=== PATIENT | male | born 1990 | race Caucasian/White ===

== ENCOUNTER 2018-10-01 18:47 | Inpatient (IN) | payer MEDICAID ==
[2018-10-02 00:12] LABS: ADD MAN DIFF? NO
[2018-10-02 00:14] LABS: WHITE BLOOD COUNT 15.2 10^3/ul (4.8-10.8)
[2018-10-02 00:14] LABS: BASOPHIL # 0.1 10^3/ul (0.0-0.1); BASOPHILS % 0.8 % (0.0-2.0); EOSINOPHILS # 0.6 10^3/ul (0.0-0.5); EOSINOPHILS % 3.9 % (0.0-7.0); HEMATOCRIT 37.3 % (42.0-52.0); HEMOGLOBIN 12.3 g/dl (14.0-18.0); LYMPHOCYTES # 3.9 10^3/ul (0.8-2.9); LYMPHOCYTES % 25.8 % (15.0-51.0); MEAN CORPUSCULAR HEMOGLOBIN 31.1 pg (29.0-33.0); MEAN CORPUSCULAR VOLUME 94.4 fl (82.0-101.0); MEAN PLATELET VOLUME 9.3 fl (7.4-10.4); MONOCYTE # 1.2 10^3/ul (0.3-0.9); MONOCYTES % 8.1 % (0.0-11.0); NEUTROPHIL # 9.3 10^3/ul (1.6-7.5); NEUTROPHILS % 60.9 % (39.0-77.0); PLATELET COUNT 288 10^3/UL (140-415); RED BLOOD COUNT 3.95 10^6/ul (4.70-6.10); RED CELL DISTRIBUTION WIDTH 13.9 % (11.5-14.5)
[2018-10-02 00:33] LABS: ANION GAP 8 (5-13); BLOOD UREA NITROGEN 11 mg/dl (7-20); CALCIUM 8.4 mg/dl (8.4-10.2); CARBON DIOXIDE 25 mmol/L (21-31); CHLORIDE 108 mmol/L (97-110); CREATININE 0.96 mg/dl (0.61-1.24); Estimated GFR > 60 mL/min (>60); GLUCOSE 112 mg/dl (70-220); POTASSIUM 4.5 mmol/L (3.5-5.1); SODIUM 141 mmol/L (135-144)
[2018-10-02] MEDS: morphine 4 MG/ML VIAL IV ×2 (01:05→02:48)
[2018-10-02] MEDS: SOD CHLORIDE 0.9% 500 ML IV (01:05)
[2018-10-02] MEDS: ONDANSETRON 4 MG INJ IV (01:05)
[2018-10-02] MEDS ORDERED: ACETAMINOPHEN 325 MG TAB PO (03:30)
[2018-10-02] MEDS ORDERED: ONDANSETRON 4 MG INJ IV ×2 (03:30→04:30)
[2018-10-02] MEDS: PIPER-TAZO 3.375 GM IV (PMX) 100 ML IVPB ×4 (03:48→17:00)
[2018-10-02] MEDS ORDERED: NITROGLYCERIN (SL) 0.4 MG TAB SL (04:30)
[2018-10-02] MEDS ORDERED: VANCOMYCIN IV PER PHARMACY XX (04:30)
[2018-10-02] MEDS ORDERED: hydrALAzine 20 MG INJ IV (04:30)
[2018-10-02] MEDS ORDERED: ALBUTEROL/IPRATROPIUM (NEB) 3 ML AMP HHN (04:30)
[2018-10-02] MEDS ORDERED: MAGNESIUM HYDROXIDE 30ML CUP PO (04:30)
[2018-10-02] MEDS ORDERED: DOCUSATE SODIUM 100 MG CAP PO (04:30)
[2018-10-02] MEDS ORDERED: LEVALBUTEROL (HFA) 15 GM INHALER INH (04:30)
[2018-10-02] MEDS ORDERED: NACL 0.9% 3 ML SYG IV (04:30)
[2018-10-02] MEDS: morphine 2 MG INJ IV ×3 (04:57→13:23)
[2018-10-02] MEDS: SOD CHLORIDE 0.45% 1,000 ML IV ×2 (05:21→17:49)
[2018-10-02] MEDS ORDERED: CEPASTAT LOZENGE MT (05:30)
[2018-10-02] MEDS: HYDROCODONE/APAP (5/325) TAB PO ×4 (05:51→21:26)
[2018-10-02] MEDS: VANCOMYCIN 1 GM (PMX) 250 ML IVPB (06:19)
[2018-10-02 07:10] LABS: FREE T4 (FREE THYROXINE) 1.28 ng/dl (0.79-2.35)
[2018-10-02] MEDS ORDERED: VITAMIN E 1,000 UNIT CAP PO (09:00)
[2018-10-02] MEDS: CHOLECALCIFEROL 1,000 UNIT TAB PO (09:09)
[2018-10-02] MEDS: VITAMIN E 200 UNITS CAP PO (09:12)
[2018-10-02] MEDS: LORAZEPAM 2 MG INJ IV ×3 (10:14→22:56)
[2018-10-02] MEDS: GUAIFENESIN 20 MG/ML 5ML CUP PO (14:17)
[2018-10-02] MEDS: GUAIFENESIN/DM (SR) TAB PO ×2 (16:36→21:25)
[2018-10-02] MEDS: LORATADINE 10 MG TAB PO (16:36)
[2018-10-02] MEDS: PROMETHAZINE/DM (CUP) PO ×2 (18:31→22:56)
[2018-10-02] MEDS: VANCOMYCIN 1 GM 250 ML IVPB (18:31)
[2018-10-02] MEDS ORDERED: VANCOMYCIN 1 GM 250 ML IVPB (19:00)
[2018-10-02] MEDS: ACETAMINOPHEN 325 MG TAB PO (22:56)
[2018-10-02] MEDS: FLUTICASONE 0.05% 16 GM NAS SPRAY NASAL (23:01)
[2018-10-03] MEDS: PIPER-TAZO 3.375 GM IV (PMX) 100 ML IVPB ×3 (00:30→12:00)
[2018-10-03] MEDS: HYDROCODONE/APAP (5/325) TAB PO ×4 (04:11→20:48)
[2018-10-03] MEDS: PROMETHAZINE/DM (CUP) PO (04:11)
[2018-10-03] MEDS: LORAZEPAM 2 MG INJ IV (05:17)
[2018-10-03] MEDS: VANCOMYCIN 1 GM 250 ML IVPB ×2 (05:17→22:03)
[2018-10-03] MEDS: SOD CHLORIDE 0.45% 1,000 ML IV (07:09)
[2018-10-03] MEDS: GUAIFENESIN/DM (SR) TAB PO ×2 (08:07→20:47)
[2018-10-03] MEDS: VITAMIN E 200 UNITS CAP PO (08:07)
[2018-10-03] MEDS: CHOLECALCIFEROL 1,000 UNIT TAB PO (08:07)
[2018-10-03] MEDS: LORATADINE 10 MG TAB PO (08:07)
[2018-10-03] MEDS: DIPHENHYDRAMINE 25 MG CAP PO ×2 (08:10→14:33)
[2018-10-03] MEDS: FLUTICASONE 0.05% 16 GM NAS SPRAY NASAL ×2 (09:21→20:48)
[2018-10-03 09:41] LABS: ADD MAN DIFF? NO
[2018-10-03 09:46] LABS: BASOPHIL # 0.1 10^3/ul (0.0-0.1); BASOPHILS % 0.7 % (0.0-2.0); EOSINOPHILS # 0.8 10^3/ul (0.0-0.5); EOSINOPHILS % 8.4 % (0.0-7.0); HEMATOCRIT 38.8 % (42.0-52.0); HEMOGLOBIN 12.5 g/dl (14.0-18.0); LYMPHOCYTES # 1.1 10^3/ul (0.8-2.9); LYMPHOCYTES % 10.8 % (15.0-51.0); MEAN CORPUSCULAR HEMOGLOBIN 30.5 pg (29.0-33.0); MEAN CORPUSCULAR HGB CONC 32.2 g/dl (32.0-37.0); MEAN CORPUSCULAR VOLUME 94.6 fl (82.0-101.0); MEAN PLATELET VOLUME 9.3 fl (7.4-10.4); MONOCYTE # 0.6 10^3/ul (0.3-0.9); MONOCYTES % 5.7 % (0.0-11.0); NEUTROPHIL # 7.2 10^3/ul (1.6-7.5); PLATELET COUNT 272 10^3/UL (140-415)
[2018-10-03 09:46] LABS: WHITE BLOOD COUNT 9.7 10^3/ul (4.8-10.8)
[2018-10-03 10:04] LABS: ANION GAP 9 (5-13); BLOOD UREA NITROGEN 10 mg/dl (7-20); CALCIUM 8.6 mg/dl (8.4-10.2); CARBON DIOXIDE 29 mmol/L (21-31); CHLORIDE 103 mmol/L (97-110); CREATININE 1.03 mg/dl (0.61-1.24); Estimated GFR > 60 mL/min (>60); GLUCOSE 91 mg/dl (70-220); MAGNESIUM 2.2 mg/dl (1.7-2.5); POTASSIUM 4.2 mmol/L (3.5-5.1); SODIUM 141 mmol/L (135-144)
[2018-10-03 10:05] LABS: CHOLESTEROL 93 mg/dl (100-200)
[2018-10-03 10:05] LABS: CHOL/HDL RATIO 2.3 RATIO; HDL CHOLESTEROL 40 mg/dl (30-63); LDL CHOLESTEROL,CALCULATED 43 mg/dl; TRIGLYCERIDES 51 mg/dl (0-149)
[2018-10-03 10:51] LABS: HEMOGLOBIN A1C 4.8 % (0-5.9)
[2018-10-03] MEDS: NACL 3% FOR INHALATION 15 ML NEBU NEB (12:30)
[2018-10-03] MEDS: ACETAMINOPHEN 325 MG TAB PO (15:04)
[2018-10-03] MEDS: ALPRAZOLAM 0.5 MG TAB PO (20:48)
[2018-10-03] MEDS: ALBUTEROL/IPRATROPIUM (NEB) 3 ML AMP HHN (22:00)
[2018-10-03] MEDS ORDERED: VANCOMYCIN IV PER PHARMACY XX (22:00)
[2018-10-03] MEDS ORDERED: HYDROCODONE/APAP (5/325) TAB PO (22:00)
[2018-10-04] MEDS: PIPER-TAZO 3.375 GM IV (PMX) 100 ML IVPB ×3 (00:49→12:16)
[2018-10-04] MEDS: HYDROCODONE/APAP (5/325) TAB PO ×4 (00:52→14:50)
[2018-10-04] MEDS: ALPRAZOLAM 0.5 MG TAB PO ×3 (00:52→13:53)
[2018-10-04] MEDS: DIPHENHYDRAMINE 25 MG CAP PO ×3 (01:47→14:50)
[2018-10-04] MEDS: ALBUTEROL/IPRATROPIUM (NEB) 3 ML AMP HHN ×2 (02:00→08:39)
[2018-10-04 07:19] LABS: ADD MAN DIFF? NO
[2018-10-04 07:30] LABS: BASOPHIL # 0.1 10^3/ul (0.0-0.1); BASOPHILS % 0.9 % (0.0-2.0); EOSINOPHILS # 1.5 10^3/ul (0.0-0.5); EOSINOPHILS % 17.1 % (0.0-7.0); HEMATOCRIT 36.7 % (42.0-52.0); LYMPHOCYTES # 1.7 10^3/ul (0.8-2.9); LYMPHOCYTES % 18.9 % (15.0-51.0); MEAN CORPUSCULAR HEMOGLOBIN 30.9 pg (29.0-33.0); MEAN CORPUSCULAR HGB CONC 32.7 g/dl (32.0-37.0); MEAN CORPUSCULAR VOLUME 94.6 fl (82.0-101.0); MEAN PLATELET VOLUME 9.2 fl (7.4-10.4); MONOCYTES % 10.7 % (0.0-11.0); NEUTROPHIL # 4.6 10^3/ul (1.6-7.5); NEUTROPHILS % 52.1 % (39.0-77.0); PLATELET COUNT 275 10^3/UL (140-415); RED BLOOD COUNT 3.88 10^6/ul (4.70-6.10); RED CELL DISTRIBUTION WIDTH 13.7 % (11.5-14.5)
[2018-10-04 07:30] LABS: WHITE BLOOD COUNT 8.9 10^3/ul (4.8-10.8)
[2018-10-04] MEDS: GUAIFENESIN/DM (SR) TAB PO (08:40)
[2018-10-04] MEDS: VITAMIN E 200 UNITS CAP PO (08:40)
[2018-10-04] MEDS: CHOLECALCIFEROL 1,000 UNIT TAB PO (08:41)
[2018-10-04] MEDS: LORATADINE 10 MG TAB PO (08:41)
[2018-10-04] MEDS: FLUTICASONE 0.05% 16 GM NAS SPRAY NASAL (09:00)
[2018-10-04] MEDS: VANCOMYCIN 1 GM 250 ML IVPB (09:25)
[2018-10-04] MEDS: morphine 2 MG INJ IV (09:25)
[2018-10-04] MEDS: PROMETHAZINE/DM (CUP) PO (10:25)
== END 2018-10-04 15:25 | disposition home or self-care (01) | DRG 202 ==
LOC: E/R 18:47 → 5EC 10-02 03:14
DX: J20.9 Acute bronchitis, unspecified (principal); E84.9 Cystic fibrosis, unspecified; R04.2 Hemoptysis; Z76.5 Malingerer [conscious simulation]
CPT/HCPCS: 36415; 71045; 80048; 80061; 83036; 83605; 83735; 84100; 84439; 84443; 85025; 87040-91; 87070; 87400; 89220; 94664; 96374; 96375; 96376; 99285-25

== ENCOUNTER 2018-11-10 15:01 | Emergency (ER) | payer MEDICAID ==
[2018-11-10] MEDS: SOD CHLORIDE 0.9% 1,000 ML IV (16:09)
[2018-11-10] MEDS: morphine 4 MG/ML VIAL IV (16:10)
[2018-11-10] MEDS: ONDANSETRON 4 MG INJ IV (16:10)
[2018-11-10 16:22] LABS: ADD MAN DIFF? NO
[2018-11-10 16:25] LABS: BASOPHIL # 0.2 10^3/ul (0.0-0.1); BASOPHILS % 0.8 % (0.0-2.0); EOSINOPHILS # 0.5 10^3/ul (0.0-0.5); HEMATOCRIT 36.4 % (42.0-52.0); HEMOGLOBIN 12.5 g/dl (14.0-18.0); LYMPHOCYTES # 2.9 10^3/ul (0.8-2.9); LYMPHOCYTES % 16.6 % (15.0-51.0); MEAN CORPUSCULAR HEMOGLOBIN 31.2 pg (29.0-33.0); MEAN CORPUSCULAR HGB CONC 34.3 g/dl (32.0-37.0); MEAN CORPUSCULAR VOLUME 90.8 fl (82.0-101.0); MEAN PLATELET VOLUME 9.1 fl (7.4-10.4); MONOCYTE # 1.2 10^3/ul (0.3-0.9); NEUTROPHIL # 12.8 10^3/ul (1.6-7.5); PLATELET COUNT 385 10^3/UL (140-415); RED BLOOD COUNT 4.01 10^6/ul (4.70-6.10); RED CELL DISTRIBUTION WIDTH 11.8 % (11.5-14.5)
[2018-11-10 16:25] LABS: WHITE BLOOD COUNT 17.7 10^3/ul (4.8-10.8)
[2018-11-10 17:24] LABS: ALANINE AMINOTRANSFERASE 14 IU/L (13-69); ALBUMIN 4.2 g/dl (3.3-4.9); ALBUMIN/GLOBULIN RATIO 0.89; ALKALINE PHOSPHATASE 164 IU/L (42-121); ANION GAP 13 (5-13); ASPARTATE AMINO TRANSFERASE 28 IU/L (15-46); BILIRUBIN,INDIRECT 0.8 mg/dl (0-1.1); BILIRUBIN,TOTAL 0.8 mg/dl (0.2-1.3); BLOOD UREA NITROGEN 8 mg/dl (7-20); CALCIUM 9.5 mg/dl (8.4-10.2); CARBON DIOXIDE 22 mmol/L (21-31); CHLORIDE 103 mmol/L (97-110); CREATININE 0.86 mg/dl (0.61-1.24); Estimated GFR > 60 mL/min (>60); GLUCOSE 112 mg/dl (70-220); POTASSIUM 3.9 mmol/L (3.5-5.1); SODIUM 138 mmol/L (135-144); TOTAL PROTEIN 8.9 g/dl (6.1-8.1)
[2018-11-10 17:26] LABS: LIPASE < 10 U/L (23-300)
[2018-11-10 17:38] LABS: ADD UMIC YES; UR ASCORBIC ACID NEGATIVE (NEGATIVE); UR BILIRUBIN (Dip) NEGATIVE (NEGATIVE); UR BLOOD (Dip) 1+ mg/dL (NEGATIVE); UR CLARITY CLEAR (CLEAR); UR COLOR STRAW (YELLOW); UR GLUCOSE (Dip) NEGATIVE (NEGATIVE); UR KETONES (Dip) NEGATIVE (NEGATIVE); UR LEUKOCYTE ESTERASE (Dip) NEGATIVE Leu/ul (NEGATIVE); UR NITRITE (Dip) NEGATIVE (NEGATIVE); UR RBC 0 /HPF (0-5); UR SPECIFIC GRAVITY (Dip) 1.002 (1.003-1.030); UR TOTAL PROTEIN (Dip) NEGATIVE (NEGATIVE); UR UROBILINOGEN (Dip) NEGATIVE (NEGATIVE); UR WBC 0 /HPF (0-5)
== END 2018-11-10 18:28 | disposition home or self-care (01) ==
LOC: E/R 15:01
DX: B34.9 Viral infection, unspecified (principal)
CPT/HCPCS: 36415; 71045; 80053; 81001; 83690; 85025; 96361; 96374; 96375; 99284-25

== ENCOUNTER 2018-11-17 12:08 | Inpatient (IN) | payer MEDICAID, OTHER ==
[2018-11-17 13:43] LABS: ADD MAN DIFF? NO
[2018-11-17] MEDS: morphine 4 MG/ML VIAL IV (13:44)
[2018-11-17] MEDS: ONDANSETRON 4 MG INJ IV ×3 (13:44→20:24)
[2018-11-17] MEDS: LACTATED RINGER'S 1,000 ML IV (13:47)
[2018-11-17 13:50] LABS: BASOPHIL # 0.2 10^3/ul (0.0-0.1); BASOPHILS % 0.7 % (0.0-2.0); EOSINOPHILS # 0.1 10^3/ul (0.0-0.5); EOSINOPHILS % 0.2 % (0.0-7.0); HEMATOCRIT 39.6 % (42.0-52.0); HEMOGLOBIN 13.6 g/dl (14.0-18.0); LYMPHOCYTES # 1.2 10^3/ul (0.8-2.9); LYMPHOCYTES % 5.5 % (15.0-51.0); MEAN CORPUSCULAR HEMOGLOBIN 31.1 pg (29.0-33.0); MEAN CORPUSCULAR HGB CONC 34.3 g/dl (32.0-37.0); MEAN CORPUSCULAR VOLUME 90.4 fl (82.0-101.0); MEAN PLATELET VOLUME 8.7 fl (7.4-10.4); MONOCYTE # 1.1 10^3/ul (0.3-0.9); NEUTROPHIL # 19.4 10^3/ul (1.6-7.5); PLATELET COUNT 386 10^3/UL (140-415); RED BLOOD COUNT 4.38 10^6/ul (4.70-6.10); RED CELL DISTRIBUTION WIDTH 11.8 % (11.5-14.5)
[2018-11-17] MEDS: HYDROmorphONE 0.5 MG/0.5 ML SYG IV ×2 (14:03→16:43)
[2018-11-17 14:13] LABS: ALANINE AMINOTRANSFERASE 33 IU/L (13-69); ALBUMIN 4.7 g/dl (3.3-4.9); ALBUMIN/GLOBULIN RATIO 0.83; ALKALINE PHOSPHATASE 210 IU/L (42-121); ANION GAP 14 (5-13); ASPARTATE AMINO TRANSFERASE 35 IU/L (15-46); BILIRUBIN,INDIRECT 1.1 mg/dl (0-1.1); BILIRUBIN,TOTAL 1.1 mg/dl (0.2-1.3); BLOOD UREA NITROGEN 6 mg/dl (7-20); CALCIUM 10.3 mg/dl (8.4-10.2); CARBON DIOXIDE 23 mmol/L (21-31); CHLORIDE 104 mmol/L (97-110); CREATININE 0.93 mg/dl (0.61-1.24); Estimated GFR > 60 mL/min (>60); GLUCOSE 160 mg/dl (70-220); POTASSIUM 3.9 mmol/L (3.5-5.1); SODIUM 141 mmol/L (135-144); TOTAL PROTEIN 10.3 g/dl (6.1-8.1)
[2018-11-17 14:14] LABS: LIPASE < 10 U/L (23-300)
[2018-11-17 14:24] LABS: TROPONIN-I < 0.012 ng/ml (0.000-0.120)
[2018-11-17] MEDS: SOD CHLORIDE 0.9% 100 ML (14:27)
[2018-11-17] MEDS: IODIXANOL LOCM 100 ML BTL (14:27)
[2018-11-17 14:32] LABS: INR 1.22; PROTIME 15.5 Sec (11.9-14.9); PT RATIO 1.2
[2018-11-17 14:33] LABS: PARTIAL THROMBOPLASTIN TIME 26.7 Sec (23.0-35.0)
[2018-11-17] MEDS: CEFEPIME 2GM/50 ML (PMX) 50 ML IVPB ×2 (15:09→21:15)
[2018-11-17] MEDS: SODIUM CHLORIDE 0.9% 1L BAG IV* (15:09)
[2018-11-17] MEDS: SOD CHLORIDE 0.9% 1,000 ML IV ×2 (15:36→23:25)
[2018-11-17] MEDS: LORAZEPAM 2 MG INJ IV (15:46)
[2018-11-17] MEDS: VANCOMYCIN 1 GM (PMX) 250 ML IVPB (15:49)
[2018-11-17] MEDS ORDERED: ONDANSETRON 4 MG INJ IV (16:00)
[2018-11-17] MEDS ORDERED: ACETAMINOPHEN 325 MG TAB PO ×2 (16:00→19:00)
[2018-11-17 17:33] LABS: LACTIC ACID 1.1 mmol/L (0.5-2.0)
[2018-11-17] MEDS ORDERED: DOCUSATE SODIUM 100 MG CAP PO (19:00)
[2018-11-17] MEDS ORDERED: NACL 0.9% 3 ML SYG IV (19:00)
[2018-11-17] MEDS ORDERED: ALBUTEROL 18 GM INHALER INH (19:00)
[2018-11-17] MEDS: morphine 2 MG INJ IV ×2 (19:07→23:25)
[2018-11-17] MEDS: AZITHROMYCIN 500MG/NS (PMX) 250 ML IVPB (20:24)
[2018-11-17] MEDS ORDERED: [UNRECOGNIZED DRUG - OTHER] PO (21:00)
[2018-11-17] MEDS ORDERED: TOBRAMYCIN INHALATION (21:00)
[2018-11-17] MEDS ORDERED: IVACAFTOR 150 MG PO (21:00)
[2018-11-17 21:01] LABS: ADD UMIC YES; UR ASCORBIC ACID NEGATIVE (NEGATIVE); UR BILIRUBIN (Dip) NEGATIVE (NEGATIVE); UR BLOOD (Dip) 1+ mg/dL (NEGATIVE); UR CLARITY CLEAR (CLEAR); UR COLOR YELLOW (YELLOW); UR GLUCOSE (Dip) NEGATIVE (NEGATIVE); UR KETONES (Dip) TRACE mg/dL (NEGATIVE); UR LEUKOCYTE ESTERASE (Dip) NEGATIVE Leu/ul (NEGATIVE); UR MUCUS FEW /HPF (NONE SEEN); UR NITRITE (Dip) NEGATIVE (NEGATIVE); UR RBC 5 /HPF (0-5); UR SQUAMOUS EPITHELIAL CELL FEW /HPF (FEW); UR TOTAL PROTEIN (Dip) NEGATIVE (NEGATIVE); UR UROBILINOGEN (Dip) NEGATIVE (NEGATIVE); UR WBC 1 /HPF (0-5)
[2018-11-17] MEDS: URSODIOL 300 MG CAP PO (21:14)
[2018-11-17] MEDS: MONTELUKAST 10 MG TAB PO (21:14)
[2018-11-17] MEDS: HYDROCODONE/APAP (5/325) TAB PO (21:16)
[2018-11-17] MEDS: [UNRECOGNIZED DRUG - REMARK] XX (21:30)
[2018-11-17] MEDS: [UNRECOGNIZED DRUG - REMARK] XX (21:30)
[2018-11-17] MEDS: [UNRECOGNIZED DRUG - REMARK] XX (21:30)
[2018-11-17] MEDS: CYPROHEPTADINE 4 MG TAB PO (23:30)
[2018-11-18] MEDS: ZOLPIDEM 5 MG TAB PO ×2 (01:03→23:04)
[2018-11-18] MEDS: [UNRECOGNIZED DRUG - REMARK] XX ×3 (05:30→21:30)
[2018-11-18] MEDS: [UNRECOGNIZED DRUG - REMARK] XX ×3 (05:30→21:30)
[2018-11-18] MEDS: [UNRECOGNIZED DRUG - REMARK] XX ×3 (05:30→23:52)
[2018-11-18] MEDS: morphine 2 MG INJ IV (05:52)
[2018-11-18 06:06] LABS: ADD MAN DIFF? NO
[2018-11-18 06:09] LABS: WHITE BLOOD COUNT 12.4 10^3/ul (4.8-10.8)
[2018-11-18 06:10] LABS: BASOPHIL # 0.1 10^3/ul (0.0-0.1); BASOPHILS % 0.4 % (0.0-2.0); EOSINOPHILS # 0.3 10^3/ul (0.0-0.5); EOSINOPHILS % 2.7 % (0.0-7.0); HEMATOCRIT 32.7 % (42.0-52.0); LYMPHOCYTES # 0.8 10^3/ul (0.8-2.9); LYMPHOCYTES % 6.3 % (15.0-51.0); MEAN CORPUSCULAR HEMOGLOBIN 31.1 pg (29.0-33.0); MEAN CORPUSCULAR HGB CONC 33.6 g/dl (32.0-37.0); MEAN CORPUSCULAR VOLUME 92.4 fl (82.0-101.0); MEAN PLATELET VOLUME 8.9 fl (7.4-10.4); MONOCYTE # 0.5 10^3/ul (0.3-0.9); MONOCYTES % 4.4 % (0.0-11.0); NEUTROPHIL # 10.7 10^3/ul (1.6-7.5); NEUTROPHILS % 85.9 % (39.0-77.0); PLATELET COUNT 289 10^3/UL (140-415); RED BLOOD COUNT 3.54 10^6/ul (4.70-6.10); RED CELL DISTRIBUTION WIDTH 11.9 % (11.5-14.5)
[2018-11-18 06:20] LABS: HEMOGLOBIN A1C 4.7 % (0-5.9)
[2018-11-18 06:41] LABS: ANION GAP 9 (5-13); BLOOD UREA NITROGEN 4 mg/dl (7-20); CALCIUM 8.8 mg/dl (8.4-10.2); CARBON DIOXIDE 26 mmol/L (21-31); CHLORIDE 108 mmol/L (97-110); Estimated GFR > 60 mL/min (>60); GLUCOSE 95 mg/dl (70-220); MAGNESIUM 1.4 mg/dl (1.7-2.5); PHOSPHORUS 2.9 mg/dl (2.5-4.9); POTASSIUM 3.6 mmol/L (3.5-5.1); SODIUM 143 mmol/L (135-144)
[2018-11-18] MEDS: POLYETHYLENE GLYCOL 17 GM PACKET PO (09:00)
[2018-11-18] MEDS: CEFEPIME 2GM/50 ML (PMX) 50 ML IVPB ×2 (09:02→20:31)
[2018-11-18] MEDS: HYDROCODONE/APAP (5/325) TAB PO ×3 (09:02→18:53)
[2018-11-18] MEDS: URSODIOL 300 MG CAP PO ×3 (09:04→20:29)
[2018-11-18] MEDS: CHOLECALCIFEROL 1,000 UNIT TAB PO (09:04)
[2018-11-18] MEDS: VITAMIN E 400 UNITS CAP PO (09:04)
[2018-11-18] MEDS: MEGESTROL (40 MG/ML) 10ML CUP PO (09:04)
[2018-11-18] MEDS: PANTOPRAZOLE (EC) 40 MG TAB PO (09:04)
[2018-11-18] MEDS: MULTIVITAMINS/MINERALS TAB PO (09:04)
[2018-11-18] MEDS: CYPROHEPTADINE 4 MG TAB PO ×2 (09:05→20:29)
[2018-11-18] MEDS: FLUTICASONE/VILANTEROL 200-25 INH DEVICE INH (09:05)
[2018-11-18] MEDS: SOD CHLORIDE 0.9% 1,000 ML IV ×2 (11:30→15:53)
[2018-11-18] MEDS: ALBUTEROL HFA 8 GM INHALER INH (11:45)
[2018-11-18] MEDS: DORNASE (NEB) 2.5 MG/2.5 ML AMP NEB (13:13)
[2018-11-18] MEDS: PHYTONADIONE (1 MG/ML PO SYG) PO (13:53)
[2018-11-18] MEDS: HYOSCYAMINE 0.375 MG PO (14:30)
[2018-11-18] MEDS: KETOROLAC 15 MG INJ IV ×2 (15:48→21:55)
[2018-11-18] MEDS: HYOSCYAMINE 0.125 MG SUBL TAB PO (15:48)
[2018-11-18] MEDS: MAGNESIUM SULFATE 1 GM/D5W 100 ML IVPB (15:52)
[2018-11-18] MEDS: AZITHROMYCIN 500MG/NS (PMX) 250 ML IVPB (18:53)
[2018-11-18] MEDS ORDERED: DIPHENHYDRAMINE 50 MG CAP PO (20:00)
[2018-11-18] MEDS: MONTELUKAST 10 MG TAB PO (20:28)
[2018-11-19] MEDS: [UNRECOGNIZED DRUG - REMARK] XX (01:00)
[2018-11-19] MEDS: KETOROLAC 15 MG INJ IV ×3 (03:59→18:52)
[2018-11-19] MEDS: [UNRECOGNIZED DRUG - REMARK] XX ×3 (05:30→21:27)
[2018-11-19] MEDS: [UNRECOGNIZED DRUG - REMARK] XX ×3 (05:30→21:27)
[2018-11-19] MEDS: [UNRECOGNIZED DRUG - REMARK] XX ×3 (06:57→21:27)
[2018-11-19] MEDS: POLYETHYLENE GLYCOL 17 GM PACKET PO (09:00)
[2018-11-19] MEDS: URSODIOL 300 MG CAP PO ×3 (09:22→21:22)
[2018-11-19] MEDS: MEGESTROL (40 MG/ML) 10ML CUP PO (09:22)
[2018-11-19] MEDS: CHOLECALCIFEROL 1,000 UNIT TAB PO (09:22)
[2018-11-19] MEDS: PANTOPRAZOLE (EC) 40 MG TAB PO (09:22)
[2018-11-19] MEDS: VITAMIN E 400 UNITS CAP PO (09:23)
[2018-11-19] MEDS: CREON (24K-76K-120K) 1 CAP PO ×3 (09:23→18:02)
[2018-11-19] MEDS: CYPROHEPTADINE 4 MG TAB PO ×2 (09:23→21:17)
[2018-11-19] MEDS: MULTIVITAMINS/MINERALS TAB PO (09:23)
[2018-11-19] MEDS: FLUTICASONE/VILANTEROL 200-25 INH DEVICE INH (09:24)
[2018-11-19] MEDS: HYDROCODONE/APAP (5/325) TAB PO ×3 (09:29→21:16)
[2018-11-19] MEDS: CEFEPIME 2GM/50 ML (PMX) 50 ML IVPB ×2 (09:29→21:25)
[2018-11-19] MEDS: PHYTONADIONE (1 MG/ML PO SYG) PO (09:38)
[2018-11-19] MEDS: SOD CHLORIDE 0.9% 1,000 ML IV ×2 (12:13→22:21)
[2018-11-19] MEDS: HYOSCYAMINE 0.375 MG PO ×2 (12:40→21:00)
[2018-11-19] MEDS: DORNASE (NEB) 2.5 MG/2.5 ML AMP NEB (13:08)
[2018-11-19 14:53] LABS: ADD MAN DIFF? NO
[2018-11-19 14:54] LABS: WHITE BLOOD COUNT 13.2 10^3/ul (4.8-10.8)
[2018-11-19 14:54] LABS: BASOPHIL # 0.1 10^3/ul (0.0-0.1); BASOPHILS % 0.5 % (0.0-2.0); EOSINOPHILS # 0.7 10^3/ul (0.0-0.5); EOSINOPHILS % 4.9 % (0.0-7.0); HEMATOCRIT 35.8 % (42.0-52.0); LYMPHOCYTES # 1.5 10^3/ul (0.8-2.9); LYMPHOCYTES % 11.2 % (15.0-51.0); MEAN CORPUSCULAR HEMOGLOBIN 31.4 pg (29.0-33.0); MEAN CORPUSCULAR HGB CONC 33.5 g/dl (32.0-37.0); MEAN CORPUSCULAR VOLUME 93.7 fl (82.0-101.0); MEAN PLATELET VOLUME 8.9 fl (7.4-10.4); MONOCYTE # 0.7 10^3/ul (0.3-0.9); MONOCYTES % 5.6 % (0.0-11.0); NEUTROPHIL # 10.2 10^3/ul (1.6-7.5); NEUTROPHILS % 77.2 % (39.0-77.0); PLATELET COUNT 315 10^3/UL (140-415); RED BLOOD COUNT 3.82 10^6/ul (4.70-6.10); RED CELL DISTRIBUTION WIDTH 11.9 % (11.5-14.5)
[2018-11-19 15:13] LABS: ANION GAP 10 (5-13); BLOOD UREA NITROGEN 8 mg/dl (7-20); CALCIUM 8.8 mg/dl (8.4-10.2); CARBON DIOXIDE 24 mmol/L (21-31); CHLORIDE 108 mmol/L (97-110); CREATININE 0.87 mg/dl (0.61-1.24); Estimated GFR > 60 mL/min (>60); GLUCOSE 155 mg/dl (70-220); POTASSIUM 3.9 mmol/L (3.5-5.1); SODIUM 142 mmol/L (135-144)
[2018-11-19] MEDS: AZITHROMYCIN 500MG/NS (PMX) 250 ML IVPB (18:02)
[2018-11-19] MEDS: MONTELUKAST 10 MG TAB PO (21:22)
[2018-11-19] MEDS: ZOLPIDEM 5 MG TAB PO (21:52)
[2018-11-20] MEDS: KETOROLAC 15 MG INJ IV ×4 (00:48→18:59)
[2018-11-20] MEDS: [UNRECOGNIZED DRUG - REMARK] XX ×3 (05:30→21:30)
[2018-11-20] MEDS: [UNRECOGNIZED DRUG - REMARK] XX ×3 (05:30→21:30)
[2018-11-20] MEDS: [UNRECOGNIZED DRUG - REMARK] XX ×3 (05:30→21:30)
[2018-11-20] MEDS: MEGESTROL (40 MG/ML) 10ML CUP PO (08:46)
[2018-11-20] MEDS: POLYETHYLENE GLYCOL 17 GM PACKET PO (08:46)
[2018-11-20] MEDS: PHYTONADIONE (1 MG/ML PO SYG) PO (08:46)
[2018-11-20] MEDS: CEFEPIME 2GM/50 ML (PMX) 50 ML IVPB ×2 (08:46→22:27)
[2018-11-20] MEDS: CYPROHEPTADINE 4 MG TAB PO (08:50)
[2018-11-20] MEDS: CHOLECALCIFEROL 1,000 UNIT TAB PO (08:50)
[2018-11-20] MEDS: CREON (24K-76K-120K) 1 CAP PO ×2 (08:50→12:55)
[2018-11-20] MEDS: HYDROCODONE/APAP (5/325) TAB PO ×2 (08:50→17:37)
[2018-11-20] MEDS: VITAMIN E 400 UNITS CAP PO (08:51)
[2018-11-20] MEDS: MULTIVITAMINS/MINERALS TAB PO (08:51)
[2018-11-20] MEDS: URSODIOL 300 MG CAP PO ×2 (08:51→12:55)
[2018-11-20] MEDS: PANTOPRAZOLE (EC) 40 MG TAB PO (08:51)
[2018-11-20] MEDS: FLUTICASONE/VILANTEROL 200-25 INH DEVICE INH (08:51)
[2018-11-20] MEDS: HYOSCYAMINE 0.375 MG PO ×2 (09:00→22:28)
[2018-11-20] MEDS: SOD CHLORIDE 0.9% 1,000 ML IV (10:56)
[2018-11-20] MEDS: DORNASE (NEB) 2.5 MG/2.5 ML AMP NEB (11:37)
[2018-11-20] MEDS ORDERED: traMADol 50 MG TAB GTB (14:30)
[2018-11-20] MEDS: traMADol 50 MG TAB PO ×2 (14:55→22:27)
[2018-11-20] MEDS: AZITHROMYCIN 500MG/NS (PMX) 250 ML IVPB (18:59)
[2018-11-20] MEDS: ONDANSETRON 4 MG INJ IV (18:59)
[2018-11-20] MEDS ORDERED: IVACAFTOR 150 MG XX (21:00)
[2018-11-20] MEDS: ZOLPIDEM 5 MG TAB PO (22:26)
[2018-11-21] MEDS: HYDROCODONE/APAP (5/325) TAB PO ×3 (02:17→18:58)
[2018-11-21] MEDS: [UNRECOGNIZED DRUG - REMARK] XX ×3 (05:30→21:30)
[2018-11-21] MEDS: [UNRECOGNIZED DRUG - REMARK] XX ×3 (05:30→21:30)
[2018-11-21] MEDS: [UNRECOGNIZED DRUG - REMARK] XX ×3 (05:30→21:30)
[2018-11-21] MEDS: KETOROLAC 15 MG INJ IV ×2 (07:18→13:27)
[2018-11-21] MEDS: VITAMIN E 400 UNITS CAP PO (08:56)
[2018-11-21] MEDS: CEFEPIME 2GM/50 ML (PMX) 50 ML IVPB ×2 (08:56→21:21)
[2018-11-21] MEDS: PANTOPRAZOLE (EC) 40 MG TAB PO (08:56)
[2018-11-21] MEDS: HYOSCYAMINE 0.375 MG PO ×2 (08:56→21:00)
[2018-11-21] MEDS: FLUTICASONE/VILANTEROL 200-25 INH DEVICE INH (08:56)
[2018-11-21] MEDS ORDERED: morphine 2 MG INJ IV ×2 (12:00→21:30)
[2018-11-21 12:27] LABS: ADD MAN DIFF? NO
[2018-11-21 12:28] LABS: BASOPHIL # 0.1 10^3/ul (0.0-0.1); BASOPHILS % 0.9 % (0.0-2.0); EOSINOPHILS # 0.4 10^3/ul (0.0-0.5); EOSINOPHILS % 4.6 % (0.0-7.0); HEMATOCRIT 34.8 % (42.0-52.0); HEMOGLOBIN 11.4 g/dl (14.0-18.0); LYMPHOCYTES # 2.2 10^3/ul (0.8-2.9); LYMPHOCYTES % 23.8 % (15.0-51.0); MEAN CORPUSCULAR HEMOGLOBIN 30.6 pg (29.0-33.0); MEAN CORPUSCULAR HGB CONC 32.8 g/dl (32.0-37.0); MEAN CORPUSCULAR VOLUME 93.3 fl (82.0-101.0); MEAN PLATELET VOLUME 8.6 fl (7.4-10.4); MONOCYTE # 0.8 10^3/ul (0.3-0.9); MONOCYTES % 9.1 % (0.0-11.0); NEUTROPHIL # 5.6 10^3/ul (1.6-7.5); NEUTROPHILS % 61.2 % (39.0-77.0); PLATELET COUNT 350 10^3/UL (140-415); RED BLOOD COUNT 3.73 10^6/ul (4.70-6.10); RED CELL DISTRIBUTION WIDTH 11.9 % (11.5-14.5)
[2018-11-21 12:28] LABS: WHITE BLOOD COUNT 9.1 10^3/ul (4.8-10.8)
[2018-11-21 12:49] LABS: ALANINE AMINOTRANSFERASE 42 IU/L (13-69); ALBUMIN 3.5 g/dl (3.3-4.9); ALBUMIN/GLOBULIN RATIO 0.81; ALKALINE PHOSPHATASE 159 IU/L (42-121); ANION GAP 8 (5-13); ASPARTATE AMINO TRANSFERASE 54 IU/L (15-46); BILIRUBIN,INDIRECT 0.3 mg/dl (0-1.1); BILIRUBIN,TOTAL 0.3 mg/dl (0.2-1.3); BLOOD UREA NITROGEN 6 mg/dl (7-20); CALCIUM 9.2 mg/dl (8.4-10.2); CARBON DIOXIDE 26 mmol/L (21-31); CHLORIDE 106 mmol/L (97-110); CREATININE 0.79 mg/dl (0.61-1.24); Estimated GFR > 60 mL/min (>60); GLUCOSE 111 mg/dl (70-220); POTASSIUM 3.4 mmol/L (3.5-5.1); SODIUM 140 mmol/L (135-144); TOTAL PROTEIN 7.8 g/dl (6.1-8.1)
[2018-11-21] MEDS: IOHEXOL 14.3 MG(I)/ML (ADULT) BTL PO (14:51)
[2018-11-21] MEDS: traMADol 50 MG TAB PO (16:01)
[2018-11-21] MEDS ORDERED: SOD CHLORIDE 0.9% 100 ML (17:45)
[2018-11-21] MEDS ORDERED: IOHEXOL 300MG/ML 150 ML BTL (17:45)
[2018-11-21] MEDS: AZITHROMYCIN 500 MG TAB PO (18:58)
[2018-11-21] MEDS: ONDANSETRON 4 MG INJ IV (20:10)
[2018-11-21] MEDS: DEXTROSE 5%-0.45% NACL 1,000 ML IV (21:22)
[2018-11-21] MEDS: morphine 2 MG INJ IV (21:25)
[2018-11-22] MEDS: morphine 2 MG INJ IV ×6 (01:24→22:15)
[2018-11-22] MEDS: [UNRECOGNIZED DRUG - REMARK] XX ×3 (08:54→21:03)
[2018-11-22] MEDS: [UNRECOGNIZED DRUG - REMARK] XX ×3 (08:54→21:03)
[2018-11-22] MEDS: [UNRECOGNIZED DRUG - REMARK] XX ×3 (08:54→21:03)
[2018-11-22] MEDS: PANTOPRAZOLE (EC) 40 MG TAB PO (08:57)
[2018-11-22] MEDS: VITAMIN E 400 UNITS CAP PO (08:57)
[2018-11-22] MEDS: HYOSCYAMINE 0.375 MG PO ×2 (08:57→21:00)
[2018-11-22] MEDS: FLUTICASONE/VILANTEROL 200-25 INH DEVICE INH (09:00)
[2018-11-22] MEDS: CEFEPIME 2GM/50 ML (PMX) 50 ML IVPB (09:17)
[2018-11-22] MEDS: ALBUTEROL HFA 8 GM INHALER INH (10:13)
[2018-11-22] MEDS: DEXTROSE 5%-0.45% NACL 1,000 ML IV ×2 (11:24→21:08)
[2018-11-22] MEDS: PIPER-TAZO 3.375 GM IV (PMX) 100 ML IVPB (17:12)
[2018-11-22] MEDS: TOBRAMYCIN/0.25NS 300 MG/5 ML INHAL NEB (20:00)
[2018-11-22] MEDS: KETOROLAC 30 MG INJ IV (21:08)
[2018-11-22] MEDS: FAMOTIDINE 20 MG INJ IV (21:08)
[2018-11-23] MEDS: PIPER-TAZO 3.375 GM IV (PMX) 100 ML IVPB ×4 (00:11→18:15)
[2018-11-23] MEDS: KETOROLAC 30 MG INJ IV ×4 (01:36→20:26)
[2018-11-23] MEDS: morphine 2 MG INJ IV ×6 (02:33→22:17)
[2018-11-23] MEDS: [UNRECOGNIZED DRUG - REMARK] XX ×3 (05:24→21:30)
[2018-11-23] MEDS: [UNRECOGNIZED DRUG - REMARK] XX ×3 (05:24→21:30)
[2018-11-23] MEDS: [UNRECOGNIZED DRUG - REMARK] XX ×2 (05:24→13:30)
[2018-11-23 05:49] LABS: ADD MAN DIFF? NO
[2018-11-23 05:59] LABS: WHITE BLOOD COUNT 7.7 10^3/ul (4.8-10.8)
[2018-11-23 05:59] LABS: BASOPHIL # 0.1 10^3/ul (0.0-0.1); BASOPHILS % 0.9 % (0.0-2.0); EOSINOPHILS # 0.6 10^3/ul (0.0-0.5); EOSINOPHILS % 7.5 % (0.0-7.0); HEMATOCRIT 33.8 % (42.0-52.0); LYMPHOCYTES % 12.3 % (15.0-51.0); MEAN CORPUSCULAR HEMOGLOBIN 30.1 pg (29.0-33.0); MEAN CORPUSCULAR HGB CONC 32.5 g/dl (32.0-37.0); MEAN CORPUSCULAR VOLUME 92.3 fl (82.0-101.0); MEAN PLATELET VOLUME 8.5 fl (7.4-10.4); MONOCYTE # 0.5 10^3/ul (0.3-0.9); MONOCYTES % 6.3 % (0.0-11.0); NEUTROPHIL # 5.6 10^3/ul (1.6-7.5); NEUTROPHILS % 72.4 % (39.0-77.0); PLATELET COUNT 345 10^3/UL (140-415); RED BLOOD COUNT 3.66 10^6/ul (4.70-6.10); RED CELL DISTRIBUTION WIDTH 11.9 % (11.5-14.5)
[2018-11-23] MEDS: DEXTROSE 5%-0.45% NACL 1,000 ML IV ×2 (05:59→12:17)
[2018-11-23 06:15] LABS: INR 1.27; PT RATIO 1.3
[2018-11-23 06:26] LABS: ALANINE AMINOTRANSFERASE 40 IU/L (13-69); ALBUMIN 3.2 g/dl (3.3-4.9); ALBUMIN/GLOBULIN RATIO 0.76; ALKALINE PHOSPHATASE 172 IU/L (42-121); ANION GAP 7 (5-13); ASPARTATE AMINO TRANSFERASE 44 IU/L (15-46); BILIRUBIN,INDIRECT 0.4 mg/dl (0-1.1); BILIRUBIN,TOTAL 0.4 mg/dl (0.2-1.3); BLOOD UREA NITROGEN 9 mg/dl (7-20); CALCIUM 8.8 mg/dl (8.4-10.2); CARBON DIOXIDE 25 mmol/L (21-31); CHLORIDE 108 mmol/L (97-110); CREATININE 0.79 mg/dl (0.61-1.24); Estimated GFR > 60 mL/min (>60); GLUCOSE 103 mg/dl (70-220); POTASSIUM 3.7 mmol/L (3.5-5.1); SODIUM 140 mmol/L (135-144); TOTAL PROTEIN 7.4 g/dl (6.1-8.1)
[2018-11-23 06:29] LABS: MAGNESIUM 1.7 mg/dl (1.7-2.5)
[2018-11-23 06:29] LABS: PHOSPHORUS 4.1 mg/dl (2.5-4.9)
[2018-11-23 06:53] LABS: LIPASE < 10 U/L (23-300)
[2018-11-23] MEDS: HYOSCYAMINE 0.375 MG PO ×2 (09:00→20:38)
[2018-11-23] MEDS: FLUTICASONE/VILANTEROL 200-25 INH DEVICE INH (09:18)
[2018-11-23] MEDS: FAMOTIDINE 20 MG INJ IV (09:18)
[2018-11-23] MEDS: ENOXAPARIN 40 MG/0.4 ML SYG SC (09:21)
[2018-11-23] MEDS: TOBRAMYCIN/0.25NS 300 MG/5 ML INHAL NEB ×2 (11:41→19:49)
[2018-11-23] MEDS: DORNASE (NEB) 2.5 MG/2.5 ML AMP NEB (11:52)
[2018-11-23] MEDS ORDERED: IOHEXOL 300MG/ML 150 ML BTL (14:28)
[2018-11-23] MEDS: traMADol 50 MG TAB PO (20:26)
[2018-11-24] MEDS: PIPER-TAZO 3.375 GM IV (PMX) 100 ML IVPB ×4 (00:17→18:04)
[2018-11-24] MEDS: KETOROLAC 30 MG INJ IV ×5 (02:06→20:04)
[2018-11-24] MEDS: DEXTROSE 5%-0.45% NACL 1,000 ML IV ×3 (02:14→22:17)
[2018-11-24] MEDS: [UNRECOGNIZED DRUG - REMARK] XX ×3 (05:30→21:30)
[2018-11-24] MEDS: [UNRECOGNIZED DRUG - REMARK] XX ×3 (05:30→21:30)
[2018-11-24] MEDS: HYOSCYAMINE 0.375 MG PO ×2 (09:00→21:00)
[2018-11-24] MEDS: TOBRAMYCIN/0.25NS 300 MG/5 ML INHAL NEB ×2 (09:23→21:22)
[2018-11-24] MEDS: DORNASE (NEB) 2.5 MG/2.5 ML AMP NEB (09:23)
[2018-11-24] MEDS: FLUTICASONE/VILANTEROL 200-25 INH DEVICE INH (09:54)
[2018-11-24] MEDS: ENOXAPARIN 40 MG/0.4 ML SYG SC (09:59)
[2018-11-24] MEDS: FAMOTIDINE 20 MG INJ IV (10:46)
[2018-11-24] MEDS: morphine 2 MG INJ IV ×3 (11:39→21:45)
[2018-11-25] MEDS: ZOLPIDEM 5 MG TAB PO ×2 (00:12→22:01)
[2018-11-25] MEDS: PIPER-TAZO 3.375 GM IV (PMX) 100 ML IVPB ×4 (00:14→17:16)
[2018-11-25] MEDS: KETOROLAC 30 MG INJ IV ×2 (02:04→08:51)
[2018-11-25 05:29] LABS: ADD MAN DIFF? NO; BASOPHIL # 0.1 10^3/ul (0.0-0.1); BASOPHILS % 1.3 % (0.0-2.0); EOSINOPHILS # 1.4 10^3/ul (0.0-0.5); EOSINOPHILS % 19.6 % (0.0-7.0); HEMATOCRIT 31.7 % (42.0-52.0); HEMOGLOBIN 10.8 g/dl (14.0-18.0); LYMPHOCYTES # 2.2 10^3/ul (0.8-2.9); LYMPHOCYTES % 31.1 % (15.0-51.0); MEAN CORPUSCULAR HEMOGLOBIN 30.9 pg (29.0-33.0); MEAN CORPUSCULAR HGB CONC 34.1 g/dl (32.0-37.0); MEAN CORPUSCULAR VOLUME 90.8 fl (82.0-101.0); MEAN PLATELET VOLUME 8.6 fl (7.4-10.4); MONOCYTE # 0.9 10^3/ul (0.3-0.9); MONOCYTES % 13.4 % (0.0-11.0); NEUTROPHIL # 2.4 10^3/ul (1.6-7.5); NEUTROPHILS % 34.2 % (39.0-77.0); PLATELET COUNT 346 10^3/UL (140-415); RED BLOOD COUNT 3.49 10^6/ul (4.70-6.10); RED CELL DISTRIBUTION WIDTH 11.9 % (11.5-14.5)
[2018-11-25] MEDS: [UNRECOGNIZED DRUG - REMARK] XX ×3 (05:30→21:30)
[2018-11-25] MEDS: [UNRECOGNIZED DRUG - REMARK] XX ×3 (05:30→21:30)
[2018-11-25 06:15] LABS: ALANINE AMINOTRANSFERASE 47 IU/L (13-69); ALBUMIN 3.2 g/dl (3.3-4.9); ALKALINE PHOSPHATASE 167 IU/L (42-121); ANION GAP 8 (5-13); ASPARTATE AMINO TRANSFERASE 52 IU/L (15-46); BILIRUBIN,INDIRECT 0.3 mg/dl (0-1.1); BILIRUBIN,TOTAL 0.3 mg/dl (0.2-1.3); BLOOD UREA NITROGEN 6 mg/dl (7-20); CALCIUM 8.8 mg/dl (8.4-10.2); CARBON DIOXIDE 24 mmol/L (21-31); CHLORIDE 111 mmol/L (97-110); CREATININE 0.76 mg/dl (0.61-1.24); Estimated GFR > 60 mL/min (>60); GLUCOSE 100 mg/dl (70-220); POTASSIUM 3.3 mmol/L (3.5-5.1); SODIUM 143 mmol/L (135-144); TOTAL PROTEIN 7.2 g/dl (6.1-8.1)
[2018-11-25 06:41] LABS: TRIIODOTHYRONINE 0.81 ng/ml (0.97-1.69)
[2018-11-25 06:45] LABS: MAGNESIUM 1.8 mg/dl (1.7-2.5)
[2018-11-25 06:45] LABS: FREE T4 (FREE THYROXINE) 1.48 ng/dl (0.79-2.35); PHOSPHORUS 4.3 mg/dl (2.5-4.9)
[2018-11-25] MEDS: FLUTICASONE/VILANTEROL 200-25 INH DEVICE INH (08:51)
[2018-11-25] MEDS: FAMOTIDINE 20 MG INJ IV (08:51)
[2018-11-25] MEDS: HYOSCYAMINE 0.375 MG PO ×2 (08:51→21:14)
[2018-11-25] MEDS: DEXTROSE 5%-0.45% NACL 1,000 ML IV ×3 (09:01→21:18)
[2018-11-25] MEDS: ENOXAPARIN 40 MG/0.4 ML SYG SC (09:01)
[2018-11-25] MEDS: TOBRAMYCIN/0.25NS 300 MG/5 ML INHAL NEB ×2 (09:05→20:13)
[2018-11-25] MEDS: DORNASE (NEB) 2.5 MG/2.5 ML AMP NEB (09:05)
[2018-11-25] MEDS ORDERED: morphine 2 MG INJ IV (13:30)
[2018-11-25] MEDS ORDERED: KETOROLAC 30 MG INJ IV (14:00)
[2018-11-25] MEDS: POTASSIUM CHLORIDE (SR) 20 MEQ TAB PO (14:20)
[2018-11-25] MEDS: HYDROCODONE/APAP (5/325) TAB PO (14:20)
[2018-11-25] MEDS ORDERED: HYDROCODONE/APAP (5/325) TAB PO (16:30)
[2018-11-25] MEDS: traMADol 50 MG TAB PO (17:16)
[2018-11-26] MEDS: PIPER-TAZO 3.375 GM IV (PMX) 100 ML IVPB ×2 (00:01→05:19)
[2018-11-26] MEDS: HYDROCODONE/APAP (5/325) TAB PO (05:19)
[2018-11-26] MEDS: [UNRECOGNIZED DRUG - REMARK] XX (05:30)
[2018-11-26] MEDS: [UNRECOGNIZED DRUG - REMARK] XX (05:30)
[2018-11-26 05:45] LABS: ADD MAN DIFF? NO
[2018-11-26 05:51] LABS: BASOPHIL # 0.1 10^3/ul (0.0-0.1); BASOPHILS % 1.6 % (0.0-2.0); EOSINOPHILS # 1.6 10^3/ul (0.0-0.5); EOSINOPHILS % 20.5 % (0.0-7.0); HEMATOCRIT 37.1 % (42.0-52.0); HEMOGLOBIN 12.1 g/dl (14.0-18.0); LYMPHOCYTES # 2.6 10^3/ul (0.8-2.9); LYMPHOCYTES % 34.5 % (15.0-51.0); MEAN CORPUSCULAR HEMOGLOBIN 30.2 pg (29.0-33.0); MEAN CORPUSCULAR HGB CONC 32.6 g/dl (32.0-37.0); MEAN CORPUSCULAR VOLUME 92.5 fl (82.0-101.0); MEAN PLATELET VOLUME 8.7 fl (7.4-10.4); MONOCYTES % 12.8 % (0.0-11.0); NEUTROPHIL # 2.3 10^3/ul (1.6-7.5); NEUTROPHILS % 30.2 % (39.0-77.0); PLATELET COUNT 371 10^3/UL (140-415); RED BLOOD COUNT 4.01 10^6/ul (4.70-6.10); RED CELL DISTRIBUTION WIDTH 11.8 % (11.5-14.5)
[2018-11-26 05:51] LABS: WHITE BLOOD COUNT 7.6 10^3/ul (4.8-10.8)
[2018-11-26 06:12] LABS: ANION GAP 7 (5-13); BLOOD UREA NITROGEN 5 mg/dl (7-20); CALCIUM 9.1 mg/dl (8.4-10.2); CARBON DIOXIDE 24 mmol/L (21-31); CHLORIDE 110 mmol/L (97-110); CREATININE 0.88 mg/dl (0.61-1.24); Estimated GFR > 60 mL/min (>60); GLUCOSE 95 mg/dl (70-220); POTASSIUM 4.4 mmol/L (3.5-5.1); SODIUM 141 mmol/L (135-144)
[2018-11-26 06:48] LABS: PHOSPHORUS 4.7 mg/dl (2.5-4.9)
[2018-11-26 06:48] LABS: MAGNESIUM 1.7 mg/dl (1.7-2.5)
[2018-11-26] MEDS: FLUTICASONE/VILANTEROL 200-25 INH DEVICE INH (08:18)
[2018-11-26] MEDS: FAMOTIDINE 20 MG TAB PO (08:19)
[2018-11-26] MEDS: HYOSCYAMINE 0.375 MG PO (08:19)
[2018-11-26] MEDS: traMADol 50 MG TAB PO (08:19)
[2018-11-26] MEDS: ENOXAPARIN 40 MG/0.4 ML SYG SC (08:22)
[2018-11-26] MEDS: DORNASE (NEB) 2.5 MG/2.5 ML AMP NEB (08:30)
[2018-11-26] MEDS: TOBRAMYCIN/0.25NS 300 MG/5 ML INHAL NEB (08:52)
[2018-11-26] MEDS ORDERED: PIPER-TAZO 3.375 GM IV (PMX) 100 ML IVPB (12:00)
[2018-11-26] MEDS ORDERED: CIPROFLOXACIN 500 MG TAB PO (18:00)
[2018-11-26] MEDS ORDERED: DOXYCYCLINE 100 MG TAB PO (21:00)
[2018-11-27] MEDS ORDERED: VITAMIN E 400 UNITS CAP PO (09:00)
== END 2018-11-26 11:25 | disposition home or self-care (01) | DRG 871 ==
LOC: E/R 12:08 → 2NE 15:36
DX: A41.59 Other Gram-negative sepsis (principal); J15.0 Pneumonia due to Klebsiella pneumoniae; E84.9 Cystic fibrosis, unspecified; K56.690 Other partial intestinal obstruction; J06.9 Acute upper respiratory infection, unspecified; D64.9 Anemia, unspecified; E88.09 Other disorders of plasma-protein metabolism, not elsewhere classified; J40 Bronchitis, not specified as acute or chronic
CPT/HCPCS: 36415; 71045; 74018; 74177; 74250; 80048; 80053; 81001; 83036; 83605; 83690; 83735; 84100; 84439; 84443; 84480; 84484; 85025; 85610; 85730; 87040-91; 87070; 87081; 87086; 93005; 94640; 96361; 96365; 96375; 99285-25

== ENCOUNTER 2018-12-30 13:38 | Emergency (ER) | payer MEDICAID | END 2018-12-30 14:29 | disposition home or self-care (01) | LOC: E/R 13:38 | DX: E84.9 Cystic fibrosis, unspecified (principal) | CPT/HCPCS: 99283; Z7502 ==

== ENCOUNTER 2018-12-30 14:55 | Emergency (ER) | payer SELFPAY, MEDICAID ==
[2018-12-30] MEDS: ACETAMINOPHEN 325 MG TAB PO (16:54)
== END 2018-12-30 18:55 | disposition home or self-care (01) ==
LOC: FTE 14:55
DX: R05 Cough (principal)
CPT/HCPCS: 71046; 71250; 99284-25